=== PATIENT | female | born 1985 | race Two or more races ===

== ENCOUNTER 2019-01-03 22:29 | Emergency (ER) | payer MEDICAID ==
[~2019-01-03] VITALS: Ht 157.5 cm; Wt 87.1 kg
[2019-01-03 23:15] VITALS: BP 122/83
[2019-01-04] MEDS ORDERED: KETOROLAC TROMETH 60MG/2ML VIAL IM ONE (03:15)
== END 2019-01-04 03:51 | disposition home or self-care (01) ==
LOC: ER 22:35
DX: G43.909 Migraine, unspecified, not intractable, without status migrainosus (principal)
CPT/HCPCS: 70450; 96372; 99284; J1885